=== PATIENT | female | born 1975 | race Caucasian/White ===

== ENCOUNTER → 2019-09-25 | Outpatient (CLI) | payer BC ==
[~2019-09-25] MED LIST: B-12 TIME1000 MCG IM; B-1250 MCG PO; MOTRIN 600600 MG/TAB; MOTRIN 600600 MG/TAB PO; PERCOCET 325 MG1 TA2 PO; PRENATAL1 TA1 PO
== END ==
LOC: ZCOL.LAB 16:30
DX: R05 Cough (principal); R19.7 Diarrhea, unspecified; R53.81 Other malaise; R09.89 Other specified symptoms and signs involving the circulatory and respiratory systems; Z20.828 Contact with and (suspected) exposure to other viral communicable diseases

== ENCOUNTER → 2019-09-25 | Outpatient (CLI) | payer SELFPAY | LOC: ZCOL.LAB 16:32 | DX: J02.9 Acute pharyngitis, unspecified (principal); Z20.828 Contact with and (suspected) exposure to other viral communicable diseases ==